=== PATIENT | male | born 1995 | race Caucasian/White ===

== ENCOUNTER 2019-08-07 04:04 | Emergency (ER) | payer OTHER ==
[~2019-08-07] VITALS: Ht 172.7 cm; Wt 77.0 kg
[2019-08-07] MEDS ORDERED: TETANUS, DIPHTHERIA, PERTUSSIS VAC/PF 0.5ML (>7YR OLD) IM ONE (07:00)
[2019-08-07] MEDS ORDERED: ACETAMINOPHEN 325MG TABLET PO ONE (07:00)
[2019-08-07 09:27] VITALS: BP 128/48
== END 2019-08-07 09:39 | disposition home or self-care (01) ==
LOC: ER 04:04
DX: S00.83XA Contusion of other part of head, initial encounter (principal); V48.7XXA Person on outside of car injured in noncollision transport accident in traffic accident, initial encounter; Y93.89 Activity, other specified; Y92.410 Unspecified street and highway as the place of occurrence of the external cause; D16.4 Benign neoplasm of bones of skull and face; J34.2 Deviated nasal septum
CPT/HCPCS: 70486; 90471; 90715; 99284

== ENCOUNTER 2019-08-07 18:09 | Emergency (ER) | payer OTHER ==
[~2019-08-07] VITALS: Ht 165.1 cm; Wt 90.0 kg
[2019-08-07] MEDS ORDERED: KETOROLAC 60MG/2ML VIAL IM ONE (22:45)
[2019-08-07] MEDS ORDERED: HYDROCODONE/ACETAMINOPHEN 5/325MG TABLET PO ONE (22:45)
[2019-08-08 01:20] VITALS: BP 140/69
== END 2019-08-08 02:16 | disposition home or self-care (01) ==
LOC: ER 18:18
DX: S83.92XA Sprain of unspecified site of left knee, initial encounter (principal); S43.401A Unspecified sprain of right shoulder joint, initial encounter; S40.011A Contusion of right shoulder, initial encounter; S00.81XA Abrasion of other part of head, initial encounter; S00.31XA Abrasion of nose, initial encounter; T74.21XA Adult sexual abuse, confirmed, initial encounter; Y93.89 Activity, other specified; Y92.89 Other specified places as the place of occurrence of the external cause; Y99.8 Other external cause status
CPT/HCPCS: 73030; 73560; 96372; 99283; J1885

== ENCOUNTER 2022-07-08 10:30 | Emergency (ER) | payer MEDICAID, OTHER ==
[~2022-07-08] VITALS: Ht 170.2 cm; Wt 82.0 kg
[2022-07-08 10:35] VITALS: BP 146/80
[2022-07-08 14:09] LABS: *AMPHETAMINES SCREEN URINE PRESUMTIVE POSITIVE (NEGATIVE); *BARBITURATES SCREEN URINE NEGATIVE (NEGATIVE); *BENZODIAZEPINES SCREEN URINE NEGATIVE (NEGATIVE); *COCAINE SCREEN URINE NEGATIVE (NEGATIVE); CANNABINOID URINE SCREEN PRESUMTIVE POSITIVE (NEGATIVE); METHADONE URINE SCREEN NEGATIVE (NEGATIVE); OPIATES URINE SCREEN NEGATIVE (NEGATIVE); PHENCYCLIDINE URINE SCREEN NEGATIVE (NEGATIVE)
== END 2022-07-08 15:56 | disposition home or self-care (01) ==
LOC: ER 10:30
DX: T74.21XA Adult sexual abuse, confirmed, initial encounter (principal); T43.652A Poisoning by methamphetamines intentional self-harm, initial encounter; T40.992A Poisoning by other psychodysleptics [hallucinogens], intentional self-harm, initial encounter; R53.1 Weakness; Y04.8XXA Assault by other bodily force, initial encounter; F12.90 Cannabis use, unspecified, uncomplicated; Y93.89 Activity, other specified; Y92.89 Other specified places as the place of occurrence of the external cause
CPT/HCPCS: 80305; 99283